=== PATIENT | male | born 1980 | race Two or more races ===

== ENCOUNTER 2017-08-09 23:49 | Emergency (ER) | payer OTHER ==
[~2017-08-09] VITALS: Ht 182.9 cm; Wt 92.1 kg
[2017-08-10] MEDS ORDERED: HYDROcodone/APAP 10/325 1 TAB TABLET ONE (00:19)
[2017-08-10] MEDS ORDERED: LIDOCAINE 2%/EPI 1:100,000 20 ML VIAL. ONE (00:28)
[2017-08-10] MEDS ORDERED: IBUPROFEN 800 MG TABLET. PO ONE (00:30)
[2017-08-10] MEDS ORDERED: HYDROcodone/APAP 10/325 1 TAB TABLET PO ONE (00:30)
--- NOTE | 2017-08-10 00:34 | PHYS DOC ---
Adult General Chief Complaint Chief Complaint: DENTAL PROBLEM HPI HPI 36-year-old male without significant past history now complaining of several day history of right jaw toothache with cheek swelling. Patient involved a toothache with swelling. He went to a clinic and was prescribed an antibiotic. He then went to a dentist who refused to provide any treatment form but prescribed clindamycin and referred him to a dental clinic. Patient did not receive any care at that visit. He now presents the emergency department because of worsening swelling and pain. Denies headache or stiff neck. He does have a swollen lymph node under his right jaw. Patient is not diabetic or immunocompromised Review of Systems Review of Systems Constitutional: Denies fever or chills or shaking chills no headache or stiff neck[] Eyes: Denies change in visual acuity, redness, or eye pain [] HENT: Denies nasal congestion or sore throat [] Respiratory: Denies cough or shortness of breath [] Cardiovascular: No additional information not addressed in HPI [] GI: Denies abdominal pain, nausea, vomiting, bloody stools or diarrhea [] : Denies dysuria or hematuria [] Musculoskeletal: Denies back pain or joint pain [] Integument: Denies rash or skin lesions [] Neurologic: Denies headache, focal weakness or sensory changes [] Endocrine: Denies polyuria or polydipsia [] All other systems were reviewed and found to be within normal limits, except as documented in this note. Current Medications Current Medications Current Medications Medications (Trade) Dose Ordered Sig/Jet Start Time Stop Time Status Last Admin Dose Admin Acetaminophen/ Hydrocodone Bitart (Lortab 10/325) 1 tab 1X ONCE 08/10/17 00:30 08/10/17 00:31 Ibuprofen (Motrin) 800 mg 1X ONCE 08/10/17 00:30 08/10/17 00:31 Allergies Allergies Allergies Coded Allergies Type Severity Reaction Last Updated Verified No Known Drug Allergies 08/10/17 No Physical Exam Physical Exam No acute distress. Soft tissue swelling and gingival mass adjacent to the right mandibular molar #30., lateral aspect. Mild right submandibular/anterior cervical adenopathy without mass or fluctuance. Soft submental no tongue elevation normal oropharynx Constitutional: Well developed, well nourished, no acute distress, non-toxic appearance. [] HENT: Normocephalic, atraumatic, bilateral external ears normal, oropharynx moist, no oral exudates, nose normal. [] Eyes: PERRLA, EOMI, conjunctiva normal, no discharge. [] Neck: Normal range of motion, no tenderness, supple, no stridor. [] Cardiovascular:Heart rate regular rhythm, no murmur [] Lungs & Thorax: Bilateral breath sounds clear to auscultation [] Abdomen: Bowel sounds normal, soft, no tenderness, no masses, no pulsatile masses. [] Skin: Warm, dry, no erythema, no rash. [] Back: No tenderness, no CVA tenderness. [] Extremities: No tenderness, no cyanosis, no clubbing, ROM intact, no edema. [] Neurologic: Alert and oriented X 3, normal motor function, normal sensory function, no focal deficits noted. [] Psychologic: Affect normal, judgement normal, mood normal. [] EKG EKG [] Radiology/Procedures Radiology/Procedures [] Course & Med Decision Making Course & Med Decision Making Pertinent Labs and Imaging studies reviewed. (See chart for details) Dental abscess right mandible lateral aspect. Analgesia given. Patient took ibuprofen prior to arrival. Incision and drainage performed. Patient aware to take Motrin and Tylenol as needed for discomfort and finish clindamycin as prescribed. He will follow up with dental clinic in 1-2 days for reevaluation and definitive dental treatment. Patient aware to return immediately for signs of worsening infection or systemic illness. Seizure: Incision and drainage of right mandibular abscess by ARYA Cardona Patient sitting in stretcher. Analgesia administered. 1% lidocaine with epi infused into the skin overlying the gingival mass adjacent to #30. Incision made with # 11 blade. Purulent discharge with relief of pressure for patient. Patient tolerated well without complication. [] Dragon Disclaimer Dragon Disclaimer This electronic medical record was generated, in whole or in part, using a voice recognition dictation system. Departure Departure: Impression: Primary Impression: Caries Additional Impressions: Dental infection Abscess, dental Disposition: 01 HOME, SELF-CARE Condition: IMPROVED Referrals: PCPRELL (PCP) Additional Instructions: Your dental cavity became infected and caused an abscess. We have drained the abscess. Finish clindamycin as previously prescribed. Take 800 mg of ibuprofen every 6 hours and Tylenol every 4 hours as needed for pain. Apply an ice pack to the area if you find this to be helpful for the soreness. Follow-up with dental clinic in 1-2 days and return immediately for signs of worsening infection. Problem Qualifiers VALERIANO CHAMPION MD Aug 10, 2017 00:34
[2017-08-10] MEDS ORDERED: LIDOCAINE 2%/EPI 1:100,000 20 ML VIAL. IJ ONE (01:00)
[2017-08-10 01:09] VITALS: BP 130/91
== END 2017-08-10 01:23 | disposition home or self-care (01) ==
LOC: ER 23:49
DX: K02.9 Dental caries, unspecified (principal); K04.7 Periapical abscess without sinus
CPT/HCPCS: 41800; 99283-25